=== PATIENT | male | born 1985 ===

== ENCOUNTER 2017-11-26 16:06 | Emergency (ER) | payer OTHER ==
[~2017-11-26] VITALS: Ht 167.6 cm; Wt 88.6 kg
[2017-11-26 16:15] VITALS: TEMP 97.2
[2017-11-26 16:35] LABS: BASO % 0.6 % (0.0-2.0); EOS # 0.1 (0.0-0.7); EOS % 2.7 % (0-4.0); GRAN # 2.9 (1.4-6.5); GRAN % 55.6 % (42.2-75.2); HEMATOCRIT 41.6 % (42.0-52.0); HEMOGLOBIN 14.6 g/dl (13.5-18.0); LYMPH # 1.6 (1.2-3.4); LYMPH % 30.2 % (20.0-51.0); MEAN CELL VOLUME 85 fl (80.0-100.0); MEAN CORPUSCULAR HEMOGLOBIN 30 pg (27.0-31.0); MEAN CORPUSCULAR HGB CONC 35 g/dl (33.0-37.0); MEAN PLATELET VOLUME 10.3 fl (7.4-10.4); MONO # 0.6 (0.1-0.6); MONO % 10.5 % (1.7-9.3); PLATELET COUNT 225 K/mm3 (130-400); RED BLOOD COUNT 4.91 M/mm3 (4.20-5.60); REDCELL DISTRIBUTION WIDTH-CV 11.9 % (11.5-14.5)
[2017-11-26 16:54] LABS: ALBUMIN 4.2 gm/dL (3.5-5.0); BILIRUBIN,TOTAL 0.4 mg/dL (0.0-1.0); CALCIUM 9.1 mg/dL (8.4-10.2); CREATININE, serum 0.89 mg/dL (0.66-1.25); POTASSIUM 3.9 mmol/L (3.4-5.0); TOTAL PROTEIN 7.6 gm/dL (6.4-8.2)
[2017-11-26 16:56] LABS: C-REACTIVE PROTEIN 0.5 mg/dL (0.0-0.9)
[2017-11-26 18:06] VITALS: BP 122/74; PULSE 56
== END 2017-11-26 18:09 | disposition home or self-care (01) ==
LOC: COL.ER 16:06
PROVIDERS: Family Medicine
DX: R09.1 Pleurisy (principal); R07.89 Other chest pain
CPT/HCPCS: J1885